=== PATIENT | male | born 1985 | race Caucasian/White ===

== ENCOUNTER → 2018-05-13 | Outpatient (CLI) | payer OTHER ==
[2018-05-13 18:36] LABS: BASO # 0.1 10*3/uL (0.0-0.1); BASO % 0.7 % (0.0-1.0); EOS # 0.2 10*3/uL (0.0-0.4); EOS % 1.9 % (1.0-4.0); HEMATOCRIT 45.3 % (42.0-52.0); HEMOGLOBIN 15.4 g/dl (14.0-18.0); LYMPH # 2.3 10*3/uL (1.3-4.4); LYMPH % 28.2 % (27.0-41.0); MEAN CELL VOLUME 84.2 fl (80.0-94.0); MEAN CORPUSCULAR HGB 28.6 pg (27.0-31.0); MEAN PLATELET VOLUME 8.5 fl (9.6-12.3); MONO # 0.6 10*3/uL (0.1-1.0); MONO % 7.2 % (3.0-9.0); NEUT # 4.9 10*3/uL (2.3-7.9); NEUT % 61.6 % (47.0-73.0); PLATELET COUNT AUTOMATED 275 10*3/uL (130-400); RED BLOOD COUNT 5.38 10*6/uL (4.50-5.90); RED CELL DISTRI WIDTH 12.6 % (0-14.5)
[2018-05-13 18:54] LABS: ALBUMIN 4.2 gm/dl (3.1-4.5); ALKALINE PHOSPHATASE 54 U/L (45-117); BUN 12 mg/dl (7-24); CHLORIDE 107 mmol/L (98-107); CHOLESTEROL 188 mg/dL (<200); CREATININE 0.89 mg/dL (0.70-1.30); HDL CHOLESTEROL 33 mg/dl (40-60); LDL CHOLESTEROL 106 mg/dL (9-159); POTASSIUM 4.1 mmol/L (3.5-5.1); SGOT/AST 14 IU/L (3-35); SGPT/ALT 42 U/L (12-78); SODIUM 141 mmol/L (136-145); TOTAL PROTEIN 7.7 gm/dL (6.4-8.2); TRIGLYCERIDES 246 mg/dl (<150); VLDL CHOLESTEROL 49 mg/dL (6-40)
[2018-05-13 18:55] LABS: FREE T4 1.02 ng/dl (0.76-1.46)
== END | disposition home or self-care (01) ==
LOC: LAB 17:59
PROVIDERS: Emergency Medicine
DX: Z00.01 Encounter for general adult medical examination with abnormal findings (principal); Z13.6 Encounter for screening for cardiovascular disorders; I10 Essential (primary) hypertension

== ENCOUNTER → 2019-04-22 | Outpatient (CLI) | payer OTHER ==
[2019-04-22 10:21] LABS: BASO # 0.1 10*3/uL (0.0-0.1); EOS # 0.2 10*3/uL (0.0-0.4); EOS % 3.6 % (1.0-4.0); HEMATOCRIT 46.7 % (42.0-52.0); HEMOGLOBIN 15.6 g/dl (14.0-18.0); LYMPH # 1.8 10*3/uL (1.3-4.4); LYMPH % 29.9 % (27.0-41.0); MEAN CORPUSCULAR HGB 29.1 pg (27.0-31.0); MEAN CORPUSCULAR HGB CONC 33.4 g/dl (33.0-37.0); MEAN PLATELET VOLUME 8.7 fl (9.6-12.3); MONO # 0.6 10*3/uL (0.1-1.0); NEUT # 3.4 10*3/uL (2.3-7.9); NEUT % 56.2 % (47.0-73.0); PLATELET COUNT AUTOMATED 277 10*3/uL (130-400); RED BLOOD COUNT 5.37 10*6/uL (4.50-5.90); RED CELL DISTRI WIDTH 12.8 % (0-14.5); WHITE BLOOD COUNT 6.1 10*3/uL (4.8-10.8)
[2019-04-22 11:00] LABS: ALBUMIN 4.1 gm/dl (3.1-4.5); ALKALINE PHOSPHATASE 51 U/L (45-117); BUN 15 mg/dl (7-24); CHLORIDE 106 mmol/L (98-107); CHOLESTEROL 198 mg/dL (<200); CREATININE 0.95 mg/dL (0.70-1.30); FREE T4 1.09 ng/dl (0.76-1.46); HDL CHOLESTEROL 39 mg/dl (40-60); LDL CHOLESTEROL 116 mg/dL (9-159); POTASSIUM 4.1 mmol/L (3.5-5.1); SGOT/AST 12 IU/L (3-35); SGPT/ALT 46 U/L (12-78); SODIUM 140 mmol/L (136-145); TOTAL PROTEIN 7.3 gm/dL (6.4-8.2); TRIGLYCERIDES 215 mg/dl (<150); VLDL CHOLESTEROL 43 mg/dL (6-40)
== END | disposition home or self-care (01) ==
LOC: LAB 10:03
PROVIDERS: Emergency Medicine
DX: Z13.6 Encounter for screening for cardiovascular disorders (principal); I10 Essential (primary) hypertension; E55.9 Vitamin D deficiency, unspecified; E66.9 Obesity, unspecified; R53.83 Other fatigue

== ENCOUNTER 2019-06-03 21:39 | Emergency (ER) | payer OTHER ==
[~2019-06-03] VITALS: Ht 190.5 cm; Wt 122.5 kg
[2019-06-03] MEDS ORDERED: VITAMIN D5000 UNI1 PO (21:44)
[2019-06-03] MEDS ORDERED: METOPROLOL SUC100 M1 PO (21:44)
[2019-06-03] MEDS ORDERED: AVPAK AZITHROM250 M1 PO (22:23)
== END 2019-06-03 22:27 | disposition home or self-care (01) ==
LOC: ED 21:39
DX: J32.9 Chronic sinusitis, unspecified (principal); J40 Bronchitis, not specified as acute or chronic; I10 Essential (primary) hypertension; Z79.899 Other long term (current) drug therapy

== ENCOUNTER → 2020-11-04 | Outpatient (CLI) | payer OTHER ==
[~2020-11-04] MED LIST: AVPAK AZITHROM250 M1 PO; METOPROLOL SUC100 M1 PO; VITAMIN D5000 UNI1 PO
[2020-11-04 12:22] LABS: BASO # 0.1 10*3/uL (0.0-0.1); BASO % 0.8 % (0.0-1.0); EOS # 0.2 10*3/uL (0.0-0.4); EOS % 2.7 % (1.0-4.0); HEMATOCRIT 44.7 % (42.0-52.0); LYMPH # 2.1 10*3/uL (1.3-4.4); LYMPH % 32.7 % (27.0-41.0); MEAN CORPUSCULAR HGB 28.9 pg (27.0-31.0); MEAN CORPUSCULAR HGB CONC 34.5 g/dl (33.0-37.0); MEAN PLATELET VOLUME 8.6 fl (9.6-12.3); MONO # 0.5 10*3/uL (0.1-1.0); MONO % 7.8 % (3.0-9.0); NEUT # 3.6 10*3/uL (2.3-7.9); NEUT % 55.7 % (47.0-73.0); PLATELET COUNT AUTOMATED 268 10*3/uL (130-400); RED BLOOD COUNT 5.32 10*6/uL (4.50-5.90); RED CELL DISTRI WIDTH 12.6 % (0-14.5); WHITE BLOOD COUNT 6.4 10*3/uL (4.8-10.8)
[2020-11-04 12:53] LABS: CHLORIDE 107 mmol/L (98-107); SODIUM 139 mmol/L (136-145)
[2020-11-04 13:03] LABS: ALBUMIN 3.9 gm/dl (3.1-4.5); ALKALINE PHOSPHATASE 50 U/L (45-117); BUN 14 mg/dl (7-24); CHOLESTEROL 226 mg/dL (<200); CREATININE 0.92 mg/dL (0.70-1.30); FREE T4 0.92 ng/dl (0.76-1.46); HDL CHOLESTEROL 45 mg/dl (40-60); LDL CHOLESTEROL 117 mg/dL (9-159); SGOT/AST 21 IU/L (3-35); SGPT/ALT 55 U/L (12-78); TOTAL PROTEIN 7.2 gm/dL (6.4-8.2); TRIGLYCERIDES 318 mg/dl (<150); VLDL CHOLESTEROL 64 mg/dL (6-40)
[2020-11-05 04:06] LABS: LDL CHOLESTEROL (DIRECT) 133 mg/dL (0-99)
== END | disposition home or self-care (01) ==
LOC: LAB 12:05
PROVIDERS: ATTEND Nurse Practitioner Family
DX: Z79.899 Other long term (current) drug therapy (principal)